=== PATIENT | female | born 1960 | race Caucasian/White ===

== ENCOUNTER 2017-01-25 01:53 | Emergency (ER) | payer MEDICARE, OTHER ==
[2017-01-25 04:15] LABS: RED BLOOD COUNT 5.39 M/UL (4.00-5.10); WHITE BLOOD COUNT 13.2 K/UL (4.5-11.0)
[2017-01-25 04:38] LABS: BUN/CREATININE RATIO 16 (0-10)
== END 2017-01-25 05:43 | disposition home or self-care (01) ==
LOC: ER1 01:53
PROVIDERS: Student in an Organized Health Care Education/Training Program
DX: N39.0 Urinary tract infection, site not specified (principal); I10 Essential (primary) hypertension; Z88.1 Allergy status to other antibiotic agents; Z90.49 Acquired absence of other specified parts of digestive tract; Z79.899 Other long term (current) drug therapy; R06.02 Shortness of breath
CPT/HCPCS: 36415; 71020; 80053; 81001; 82550; 82553; 83690; 83874; 84484; 85025; 87086; 93005; 99284; Q0162

== ENCOUNTER 2021-12-20 04:03 | Emergency (ER) | payer MEDICARE, OTHER ==
[~2021-12-20 04:03] MED LIST: LORAZEPAM0.5 MG PO; NORVASC 5 MG TAB5 MG PO; TRAMADOL HCL50 MG PO; ZESTRIL 40 MG T40 MG PO
[2021-12-20 04:41] LABS: HEMOGLOBIN 14.7 gm/dl (12.3-15.3); RED BLOOD COUNT 4.99 M/UL (4.00-5.10); WHITE BLOOD COUNT 7.7 K/UL (4.5-11.0)
[2021-12-20 05:13] LABS: BUN/CREATININE RATIO 14 (0-10)
[2021-12-20] MEDS ORDERED: ZOFRAN 4 MG TAB4 MG PO (08:09)
[2021-12-20] MEDS ORDERED: PROTONIX40 MG PO (08:09)
== END 2021-12-20 07:36 | disposition home or self-care (01) ==
LOC: ER1 04:03
PROVIDERS: Physician Assistant
DX: K29.80 Duodenitis without bleeding (principal); I10 Essential (primary) hypertension; Z85.3 Personal history of malignant neoplasm of breast; Z88.1 Allergy status to other antibiotic agents
CPT/HCPCS: 80053; 82550; 82553; 83690; 84484; 85025; 93005; 96374; 96375; 99284; C9113; J2405; Q9967

== ENCOUNTER → 2022-01-16 | Day surgery (SDC) | payer MEDICARE, OTHER ==
[~2022-01-16] MED LIST changes: +DAILY VITAMIN1 EAC2 PO; +HYDROXYZINE HCL10 MG PO; +PROTONIX40 MG PO; +ZOFRAN 4 MG TAB4 MG PO
== END | disposition home or self-care (01) ==
LOC: OR 07:22
DX: K29.50 Unspecified chronic gastritis without bleeding (principal); K26.3 Acute duodenal ulcer without hemorrhage or perforation; K57.10 Diverticulosis of small intestine without perforation or abscess without bleeding; K31.5 Obstruction of duodenum; K44.9 Diaphragmatic hernia without obstruction or gangrene; K31.819 Angiodysplasia of stomach and duodenum without bleeding; K76.6 Portal hypertension; K31.89 Other diseases of stomach and duodenum; I10 Essential (primary) hypertension; K76.0 Fatty (change of) liver, not elsewhere classified; M19.90 Unspecified osteoarthritis, unspecified site; E66.01 Morbid (severe) obesity due to excess calories; Z68.41 Body mass index [BMI] 40.0-44.9, adult; Z88.1 Allergy status to other antibiotic agents; Z88.2 Allergy status to sulfonamides; Z79.891 Long term (current) use of opiate analgesic; Z79.899 Other long term (current) drug therapy
CPT/HCPCS: J2704; J7040

== ENCOUNTER 2022-06-07 16:16 | Emergency (ER) | payer MEDICARE, OTHER ==
[2022-06-07 18:24] LABS: BUN/CREATININE RATIO 29 (0-10)
[2022-06-07 19:02] LABS: HEMOGLOBIN 14.2 gm/dl (12.3-15.3); RED BLOOD COUNT 4.76 M/UL (4.00-5.10)
[2022-06-07] MEDS ORDERED: CEPHALEXIN500 M1 PO (19:46)
[2022-06-07] MEDS ORDERED: DIFLUCAN150 MG PO (19:48)
== END 2022-06-07 20:16 | disposition home or self-care (01) ==
LOC: ER1 16:16
DX: N30.00 Acute cystitis without hematuria (principal); E78.5 Hyperlipidemia, unspecified; I10 Essential (primary) hypertension; Z90.49 Acquired absence of other specified parts of digestive tract; Z87.442 Personal history of urinary calculi; Z90.12 Acquired absence of left breast and nipple; Z88.1 Allergy status to other antibiotic agents
CPT/HCPCS: 80053; 81001; 83690; 85025; 87086; 96374; 96375; 99283; J1885

== ENCOUNTER 2022-06-10 00:01 | Emergency (ER) | payer MEDICARE, OTHER ==
[~2022-06-10 00:01] MED LIST changes: +CEPHALEXIN500 M1 PO; +DIFLUCAN150 MG PO
[2022-06-10 00:52] LABS: HEMOGLOBIN 14.6 gm/dl (12.3-15.3); RED BLOOD COUNT 4.87 M/UL (4.00-5.10); WHITE BLOOD COUNT 8.1 K/UL (4.5-11.0)
[2022-06-10 01:24] LABS: BUN/CREATININE RATIO 16 (0-10)
[2022-06-10] MEDS ORDERED: PROTONIX40 MG PO (06:14)
== END 2022-06-10 06:31 | disposition home or self-care (01) ==
LOC: ER1 00:01
PROVIDERS: Student in an Organized Health Care Education/Training Program
DX: R10.9 Unspecified abdominal pain (principal); I10 Essential (primary) hypertension; Z85.3 Personal history of malignant neoplasm of breast; Z88.2 Allergy status to sulfonamides
CPT/HCPCS: 80053; 81001; 82550; 82553; 83690; 84484; 85025; 93005; 96374; 99284; C9113; Q9967